=== PATIENT | female | born 1940 | race Caucasian/White ===

== ENCOUNTER 2020-08-11 11:28 | Observation (INO) ==
[2020-08-11 13:01] LABS: Hematocrit 40.4 % (35.3-44.9); Hemoglobin 13.1 g/dL (11.5-15.4); Mean Corpuscular HGB Conc 32.4 g/dL (31.6-35.5); Mean Corpuscular Hemoglobin 32.3 pg (28.0-33.3); Mean Corpuscular Volume 99.5 fL (83.0-100.0); Mean Platelet Volume 10.3 fL (9.4-12.4); Platelet Count 281 K/mcL (140-400); Red Blood Count 4.06 M/mcL (3.82-4.97); Red Cell Distribution Width 12.2 % (11.5-14.5); White Blood Count 6.9 K/mcL (4.3-11.1)
[2020-08-11 13:21] LABS: BUN/Creatinine Ratio 18 (6-26); Blood Urea Nitrogen 15 mg/dL (8-23); Calcium 9.1 mg/dL (8.6-10.3); Carbon Dioxide 26 mEq/L (23-29); Chloride 107 mEq/L (98-107); Glucose 107 mg/dL (70-105); Osmolality,Calculated 293 (280-300); Potassium 3.6 mEq/L (3.5-5.1); Sodium 141 mEq/L (136-145); eGFR For African Americans > 60 (> 60); eGFR For Non-African Americans > 60 (> 60)
[2020-08-11 13:22] LABS: Troponin I < 0.03 ng/mL (< 0.04)
[2020-08-11 13:47] LABS: Bacteria,Urine Few per hpf (None-Few); Bilirubin,Urine Negative (Negative); Blood,Urine Small (Negative); Clarity,Urine Turbid (Clear); Color,Urine Dark-Yellow (Yellow); Glucose,Urine (UA) Normal (Normal); Ketones,Urine Negative (Negative); Leukocyte Esterase,Urine Moderate (Negative); Mucus,Urine Few per lpf (None-Few); Nitrite,Urine Negative (Negative); PH,Urine 5.5 pH Units (5.0-8.0); Protein,Urine Negative (Neg-Trace); Renal Epithelial Cells,Urine Moderate per hpf (None-Few); Specific Gravity,Urine 1.016 (1.010-1.025); Squamous Epithelial Cell,Urine Few per hpf (None-Few); Transitional Epi Cells,Urine Moderate per hpf (None-Few); Urobilinogen,Urine Normal (Normal); WBC,Urine 30-50 per hpf (0-3)
[2020-08-11] MEDS ORDERED: Perflutren Lipid Microsphere 1.3 ML in 0.9 % Sodium Chloride 8.7 ML IVP PRN (14:31)
[2020-08-11] MEDS ORDERED: Naloxone 0.4 MG/ML INJ IVP PRN (14:32)
[2020-08-11] MEDS: Aspirin 81 MG TAB.CHEW PO SCH (15:34)
[2020-08-11] MEDS: *HR* Heparin 5,000 UNIT/ML VIAL SQ SCH (17:47)
[2020-08-12] MEDS: *HR* Heparin 5,000 UNIT/ML VIAL SQ SCH (05:22)
[2020-08-12 06:32] LABS: Chol/HDL Ratio 6.7 (0-4.9)
[2020-08-12] MEDS ORDERED: Isovue-370 500 ML BOTTLE IVP ONE (07:48)
[2020-08-12] MEDS: Aspirin 81 MG TAB.CHEW PO SCH (08:30)
[2020-08-12 08:52] LABS: Estimated Average Glucose 126 mg/dl
[2020-08-12 10:36] VITALS: BP 137/80
== END 2020-08-12 15:55 | disposition home or self-care (01) ==
LOC: EMEROOARM 11:28 → 3BNU 11:28 → SUATTDRO 14:00 → 3BNU 14:58
PROVIDERS: ADMIT Internal Medicine; ATTEND Internal Medicine